=== PATIENT | male | born 1995 | race Caucasian/White ===

== ENCOUNTER 2017-06-26 22:44 | Emergency (ER) | payer OTHER ==
[~2017-06-26] VITALS: Ht 180.3 cm; Wt 95.2 kg
[2017-06-26 23:23] VITALS: Ht 180.3 cm; Wt 95.2 kg
[2017-06-27 00:19] VITALS: BP 152/73
== END 2017-06-27 00:31 | disposition home or self-care (01) ==
LOC: ED 22:44
DX: J45.901 Unspecified asthma with (acute) exacerbation (principal)
CPT/HCPCS: J7512; J7613; J7644